=== PATIENT | female | born 1990 | race Caucasian/White ===

== ENCOUNTER 2024-10-27 09:45 | Emergency (ER) | payer SELFPAY ==
[2024-10-27 09:46] VITALS: BP 136/72; PULSE 89; RESP 18; TEMP 36.6; O2SAT 99; BMI 19.6
--- NOTE | 2024-10-27 09:53 | EDS_ITS ---
HPI History of Present Illness Chief Complaint: Lower Extremity Injury Detail of Chief Complaint: Patient injury right ankle Informant: patient Onset/Context/Timing Onset: Hours (Approximately 1 hour prior to presentation) Context: Sudden Onset Timing: Continuous Quality: Pain Location: lateral right ankle Current Severity: Mild Maximum Severity: Severe Worsened by: Weightbearing or movement or palpation Relieved by: Nothing Associated Symptoms Associated Symptoms: None Narrative Narrative: Patient is a 34-year-old woman. She misjudged the last step. She had a plantar eversion mechanism injury. She localizes pain to the lateral malleolus. She denies paresthesia, anesthesia or motor weakness. She denies prior injury. She denies pain in her foot or knee. Prior similar symptoms: No Recent Illness/Hospitalization: No PFSH PFSH Medical History no medical history no medical history Home Medications ?Medication ?Instructions ?Recorded ?Last Taken ?Type hydrocodone-acetaminophen 5-325mg 1 tab PO Q6H PRN PRN Pain 3 days 10/27/24 Unknown Rx 5mg-325mg #10 TABLETS Allergy/AdvReac Type Severity Reaction Status Date / Time No Known Allergies Allergy Verified 10/27/24 09:46 Social History (Updated 10/27/24 @ 10:[address] Kian Ponce MD) Smoking Status: Never smoker alcohol intake: current ROS ROS ED Musculoskeletal Musculoskeletal: Reports other Details: HPI narrative Integumentary Denies Abrasions or rash Neurologic Neurologic: Denies paresthesias or weakness Hematologic/Lymphatic Hematologic/Lymphatic: Reports systems reviewed and no addt'l complaints, except as documented; Denies easy bleeding or easy bruising EXAM Physical Exam Const Vital Signs: 10/27/24 09:46 Temperature 98 F Temperature Source Oral Pulse Rate 89 Respiratory Rate 18 Blood Pressure 136/72 H Blood Pressure Mean 93 Pulse Ox 99 Oxygen Delivery Method Room Air Positive well nourished and well developed General Appearance ED: well developed and NAD; Negative for pallor HEENT HEENT Narrative: Head is atraumatic and normocephalic. Ears normal. Eyes PERRL and EOMs intact bilaterally General Eye ED: Negative for pale conjunctiva or scleral icterus Neck supple Resp normal respiratory effort Cardio regular rate and regular rhythm Extremity Negative for normal to inspection Extremity Narrative: There is swelling over the lateral malleolus with pain palpation posterior distal 3 cm of the fibula. DP and PT pulse are palpable. There is no laxity with drawer testing. There is no pain palpation at the base of the fifth metatarsal. Neuro oriented x3, CN's II-XII intact bilaterally and no sensory deficits noted Sensorium / Orientation: alert Motor Exam: strength 5/5 throughout Psych mental status grossly normal Skin no rashes or lesions noted, no wounds and skin turgor normal General Skin Exam: Negative for jaundice or pallor MDM MDM MDM Narrative Medical decision making narrative: Per the [place] ankle rule imaging is indicated. 3 views of the ankle was ordered. Patient was offered pain medicine, which she declined. Radiography Chest X-Ray - ED: Read by ED Physician (Three-view x-ray of the right ankle reveals a nondisplaced [place] type a distal fibular fracture. Will treat with walking boot and refer to Dr. Recinos unless she has seen a supervisor facepiece line or orthopedist in the past.) Discharge Plan Triage Chief Complaint: Lower Extremity Injury ED Provider: Kian Ponce Dx/Rx/DC Orders Clinical Impression: Nondisplaced fracture of distal end of right fibula, Difficulty walking Instructions: ED Ankle Fracture, Distal Fibula Prescriptions: New hydrocodone-acetaminophen 5-325 mg tablet 1 tab PO Q6H PRN PRN (Reason: Pain) 3 Days Qty: 10 0RF Stand Alone Forms: Work Status Form Referrals: Marshall Recinos DPM [Med Staff - Active Staff] - 5-7 Days Activity Restrictions/Additional Instructions: 1. Elevate your right foot is much as possible for the next 3 to 5 days. 2. Apply ice 6-10 times a day for the next 3 to [address] Recinos's office for follow-up in the next 5 to 7 days. Print Language: Bahamian Disposition Disposition: Home, Self Care
--- NOTE | 2024-10-27 10:00 | RAD_ITS ---
PROCEDURE: ANKLE MIN 3 VIEWS 10/27/2024 REASON FOR EXAM: INJURY TECHNIQUE: ANKLE MIN 3 VIEWS COMPARISON: None FINDINGS: There is an acute transverse fracture in the distal fibula with associated soft tissue swelling. The ankle mortise is well-preserved. No demonstrated fracture in the distal tibia or talus. RAD/Ankle min 3 Views IMPRESSION: Acute nondisplaced transverse fracture through the distal fibula with soft tiss ue swelling Reading Location: [id number]
[2024-10-27 11:00] VITALS: BP 136/72; PULSE 89; RESP 18; TEMP 36.6; O2SAT 99
== END 2024-10-27 11:26 | disposition home or self-care (01) ==
LOC: ED 10:18
PROVIDERS: Emergency Provider Emergency Medicine; Visit Provider Emergency Medicine
DX: S82.831A Other fracture of upper and lower end of right fibula, initial encounter for closed fracture (principal); R26.2 Difficulty in walking, not elsewhere classified; X58.XXXA Exposure to other specified factors, initial encounter
CPT/HCPCS: 73610; 99283